=== PATIENT | female | born 1960 ===

== ENCOUNTER 2020-07-12 07:00 | Day surgery (SDC) | payer OTHER | END 2020-07-12 10:45 | disposition home or self-care (01) | LOC: AMB-ENDOS 07:00 | PROVIDERS: ATTEND Surgery | DX: K62.89 Other specified diseases of anus and rectum (principal); K64.8 Other hemorrhoids; Z20.822 Contact with and (suspected) exposure to COVID-19; Z12.11 Encounter for screening for malignant neoplasm of colon ==